=== PATIENT | female | born 2000 | race Hispanic/Latino ===

== ENCOUNTER 2021-12-12 10:05 | Emergency (ER) | payer SELFPAY ==
--- NOTE | ~2021-12-12 | CT_ITS ---
EXAMINATION: CT abdomen pelvis w con INDICATION: Right-sided abdominal pain TECHNIQUE: Computed tomographic images of the abdomen and pelvis were obtained after the administrati on of 100 cc of Omnipaque 350 intravenous contrast. The dose-length product (DLP) was 511.89 mGy-cm. Automated exposure control and iterative reconstruction technique were employed. COMPARISON: None available FINDINGS: Minimal dependent atelectasis is present in the lung bases. The heart size is normal. The l iver is diffusely low in attenuation when compared with the spleen, consistent with hepatic steatosis . The spleen, pancreas, gallbladder, and adrenal glands are normal. The kidneys are unremarkable. No pathologically enlarged abdominal or pelvic lymph nodes are identified. There is no free intraperiton eal gas or evidence of bowel obstruction. The appendix is normal. IMPRESSION: 1. Diffuse hepatic steatosis. Reviewed, dictated and finalized at location B.
[2021-12-12 10:11] VITALS: BP 133/78; PULSE 100; RESP 16; TEMP 36.3; O2SAT 99
--- NOTE | 2021-12-12 10:40 | PC.NURSE ---
unable to st. cath in triage
[2021-12-12 10:46] LABS: Alanine Aminotransferase 160 U/L (6-35); Albumin Level 4.9 g/dL (3.5-5.1); Alkaline Phosphatase 152 U/L (38-126); Anion Gap 11 mmol/L (8-16); Aspartate Amino Transferase 78 U/L (14-36); Bilirubin,Total 0.4 mg/dL (0.2-1.3); Blood Urea Nitrogen 13 mg/dL (7-17); Calcium 9.8 mg/dL (8.4-10.2); Carbon Dioxide 26 mmol/L (22-30); Chloride 102 mmol/L (98-107); Estimated Glomerular Filt Rate > 60; Glucose 100 mg/dL (65-110); Lipase 66 U/L (23-300); Potassium 3.9 mmol/L (3.4-5.0); Sodium 139 mmol/L (137-145)
[2021-12-12 10:48] LABS: Basophils Absolute Auto 0.1 K/mm3 (0.0-0.1); Eosinophils Absolute Auto 1.4 K/mm3 (0-0.3); Eosinophils Percent Auto 16.1 % (0-4.4); Hematocrit 41.6 % (37.0-47.0); Hemoglobin 13.7 g/dL (12.0-15.0); Immature Granulocyte Absolute 0.04 K/mm3 (0.00-0.031); Immature Granulocyte Percent A 0.5 % (0-0.5); Lymphocytes Absolute Auto 2.74 K/mm3 (0.9-3.2); Lymphocytes Percent Auto 31.6 % (18.3-44.2); Mean Corpuscular HGB Conc 32.9 g/dl (32-36); Mean Corpuscular Volume 88.1 fl (80-100); Mean Platelet Volume 9.8 fl (7.4-10.4); Monocytes Absolute Auto 0.7 K/mm3 (0.1-0.6); Monocytes Percent Auto 7.5 % (2.6-8.5); Neutrophils Absolute Auto 3.8 K/mm3 (1.3-6.7); Neutrophils Percent Auto 43.3 % (45.5-73.1); Platelet Count Result 287 k/mm3 (150-375); Red Blood Count 4.72 M/mm3 (4.2-5.4); Red Cell Distribution Width 12.8 % (11.5-14.5); White Blood Count 8.7 K/mm3 (4.5-10.0)
--- NOTE | 2021-12-12 13:23 | ED.ABDPAIN ---
HPI - Abdominal Pain General Chief Complaint: Abdominal Pain Stated Complaint: RUQ, R leg pain Time Seen by Provider: 12/12/21 13:07 Source: patient Mode of arrival: ambulatory Limitations: no limitations History of Present Illness HPI narrative: Patient is a 21-year-old female presenting for evaluation of RLQ and right sided abdominal pain. Patient reports pain is aching in nature in the right lower quadrant without radiation to the right flank. Patient also reports radiation of the pain to the right lower extremity. She reports mild pain with urination as well as frequency of urination. She has been ambulatory with a normal base, steady gait. She denies recent fall or injury. She denies centralized back pain, flank pain. She denies difficulty with urination, saddle anesthesia, focal weakness or numbness. Patient reports intermittent nausea without vomiting. Pt denies diarrhea or constipation. She denies fever, chills, chest pain, dyspnea or cough. She denies vaginal bleeding or discharge. Pt is sexually active, does not utilize OCP. LMP 8/24. Patient is requesting to know if she is . Related Data Allergies Allergy/AdvReac Type Severity Reaction Status Date / Time No Known Allergies Allergy Verified 12/12/21 10:27 Review of Systems Review of Systems: CONSTITUTIONAL: Denies fever, chills, or sweats. ENT: Denies rhinorrhea, congestion, sore throat, or otalgia. CARDIOVASCULAR: Denies chest pain, palpitations, or edema. RESPIRATORY: Denies cough or dyspnea. GASTROINTESTINAL: Patient reports right sided abdominal pain, nausea without vomiting, denies constipation or diarrhea GENITOURINARY: Reports dysuria without hematuria SKIN: Denies rash or itching. MUSCULOSKELETAL: Denies myalgias or arthralgias, reports right lower extremity pain NEUROLOGIC: Denies headache, numbness, or weakness. [facility] Social History Social History (Updated 12/12/21 @ 14:19 by Romelia Fry MD) Smoking status: Never smoker Alcohol intake: never Substance use: never Exam Narrative: GENERAL: Awake, alert, conversant HEAD: Normocephalic, atraumatic. EYES: PERRLA and EOMI. ENT: Nares clear, no rhinorrhea or epistaxis. Mucous membranes moist. NECK: Supple. CHEST: No respiratory distress, breathing even and non labored HEART: Regular rate, sinus rhythm ABDOMEN:Non distended, RLQ abd tenderness with right flank tenderness, no guarding, no rebound EXTREMITIES: Normal range of motion. No edema. Pt with pain with flexion and extension of right hip, knee and leg due; passive ROM intact. No edema or erythema. SKIN: Warm, dry, no rash. NEURO:No focal deficits. Alert and oriented x3 Course Vital Signs Vital signs: Vital Signs Temperature 36.3 C L 12/12/21 10:11 Pulse Rate 100 12/12/21 10:11 Respiratory Rate 16 12/12/21 10:11 Blood Pressure 133/78 12/12/21 10:11 Pulse Oximetry 99 12/12/21 10:11 Oxygen Delivery Room Air 12/12/21 10:11 Temperature 36.3 C L 12/12/21 10:11 Pulse Rate 100 12/12/21 10:11 Respiratory Rate 16 12/12/21 10:11 Blood Pressure 133/78 12/12/21 10:11 Pulse Oximetry 99 12/12/21 10:11 Oxygen Delivery Room Air 12/12/21 10:11 MDM - Abdominal Pain MDM Narrative Medical decision making narrative: Patient presented for evaluation of abdominal pain that radiates to her right lower leg. At the time of assessment, ABCs are intact and vital signs are stable. Patient does have right lower quadrant tenderness on exam without CVA flank tenderness. Patient has full range of motion of the right lower extremity without edema, erythema. No deformity. Patient is neurovascularly intact. There is no sign of injury. There is no rash. IV access obtained and labs are drawn. Patient was given IV fluids, antiemetic and pain medication. Patient's laboratory results are reassuring. No leukocytosis. No electrolyte abnormality. No acute kidney injury. Urinalysis is potentially consistent wi
[2021-12-12 14:51] LABS: Add Urine Microscopic? YES; Appearance Urine Clear (Clear); Bilirubin Urine Negative (Negative); Blood Urine Trace-Intact (Negative); Color Urine Yellow (Yellow); Glucose Urine UA Negative (Negative); Ketones Urine Negative (Negative); Leukocyte Esterase Ur 2+ LEU/UL (Negative); Nitrate Urine Negative (Negative); Protein Urine Negative (Negative); Specific Grav Ur 1.025 (1.001-1.035); Urobilinogen Urine 0.2 mg/dL (<2.0); pH Urine 5.5 (5.0-9.0)
[2021-12-12 14:58] LABS: Bacteria Urine Trace /hpf; Squamous Epithelial Cell Urine Moderate /hpf (Few)
[2021-12-12] MEDS: SODIUM CHLORIDE 0.9% IV 1,000 ML 999 ML IV CONT (15:09)
[2021-12-12] MEDS: ONDANSETRON INJ 4 MG/2 ML VIAL IV PUSH (15:09)
[2021-12-12] MEDS: MORPHINE SULFATE (*CRX) 4 MG/ML INJ IV PUSH (15:10)
[2021-12-12 17:00] VITALS: BP 116/63; PULSE 77; RESP 16; O2SAT 100
== END 2021-12-12 17:00 | disposition home or self-care (01) ==
PROVIDERS: Emergency Medicine; Emergency Provider Emergency Medicine
DX: N39.0 Urinary tract infection, site not specified (principal); R74.01 Elevation of levels of liver transaminase levels; K76.0 Fatty (change of) liver, not elsewhere classified
CPT/HCPCS: 36415; 74177; 80053; 81001; 81025; 83690; 85025; 96361; 96374; 96375; 99284; J2270; J2405; J7030; Q9967

== ENCOUNTER 2022-07-02 14:01 | Emergency (ER) | payer SELFPAY ==
--- NOTE | ~2022-07-02 | CT_ITS ---
EXAMINATION: CT abdomen pelvis w con DATE: 07/02/2022 23:12 INDICATION: Right lower quadrant abdominal pain and tenderness. TECHNIQUE: Computed tomography (CT) of the abdomen and pelvis was performed with 100 mL Omnipaque-350 intravenous contrast. Automated exposure control and iterative reconstruction technique were employe d. The dose-length product was 611.75 mGy-cm. COMPARISON: 12/12/21 FINDINGS: Lung bases are clear. Heart size is normal. No pericardial or pleural effusion. Likely diffuse hepati c steatosis although specificities decreased by the presence of intravenous contrast. Subtle 1.4 cm e nhancing lesion in the right hepatic lobe. Suggestion of a possible small gallstone near the neck of the otherwise normal-appearing gallbladder. No intra or axial hepatic biliary ductal dilation. The pa ncreas, spleen, bilateral adrenal glands and kidneys are normal. Bowels including the appendix are no rmal. Bladder, anteverted uterus and bilateral adnexa are unremarkable. No free intraperitoneal gas o r fluid. No pathologically enlarged abdominal or pelvic lymphadenopathy. Bones are unremarkable. IMPRESSION: 1. Normal appendix. No evident acute intra-abdominal/pelvic process. 2. Nonspecific 1.4 cm enhancing lesion in the right hepatic lobe which given patient age is most like ly benign but would recommend further evaluation with pre and postcontrast MRI. 3. Suggestion of a subtle gallstone at the neck of the otherwise normal-appearing gallbladder. No fin dings to suggest acute cholecystitis or biliary ductal dilation. More definitive assessment for latrice lithiasis could be obtained either the same time as evaluation of the liver lesion with MRI/MRCP or w ith ultrasound. Reviewed, dictated and finalized at location A. IMPRESSION: 1. Normal appendix. No evident acute intra-abdominal/pelvic process. 2. Nonspecific 1.4 cm enhancing lesion in the right hepatic lobe which given pa tient age is most likely benign but would recommend further evaluation with pre and postcontrast MRI. 3. Suggestion of a subtle gallstone at the neck of the otherwise normal-appeari ng gallbladder. No findings to suggest acute cholecystitis or biliary ductal di lation. More definitive assessment for cholelithiasis could be obtained either the same time as evaluation of the liver lesion with MRI/MRCP or with ultrasoun d.
[2022-07-02 14:10] VITALS: PULSE 85; RESP 16; TEMP 36.6; O2SAT 100
[2022-07-02 16:42] VITALS: BP 108/69; PULSE 88; O2SAT 98
[2022-07-02 16:49] LABS: Basophils Absolute Auto 0.1 K/mm3 (0.0-0.1); Basophils Percent Auto 0.9 % (0.2-1.2); Eosinophils Absolute Auto 1.1 K/mm3 (0-0.3); Eosinophils Percent Auto 11.2 % (0-4.4); Hematocrit 43.3 % (37.0-47.0); Hemoglobin 14.6 g/dL (12.0-15.0); Immature Granulocyte Absolute 0.05 K/mm3 (0.00-0.031); Immature Granulocyte Percent A 0.5 % (0-0.5); Lymphocytes Absolute Auto 3.34 K/mm3 (0.9-3.2); Mean Corpuscular HGB Conc 33.7 g/dl (32-36); Mean Corpuscular Hemoglobin 29.4 pg (26-34); Mean Corpuscular Volume 87.1 fl (80-100); Mean Platelet Volume 9.6 fl (7.4-10.4); Monocytes Absolute Auto 0.6 K/mm3 (0.1-0.6); Monocytes Percent Auto 6.3 % (2.6-8.5); Neutrophils Absolute Auto 4.9 K/mm3 (1.3-6.7); Neutrophils Percent Auto 48.1 % (45.5-73.1); Platelet Count Result 297 k/mm3 (150-375); Red Blood Count 4.97 M/mm3 (4.2-5.4); Red Cell Distribution Width 12.9 % (11.5-14.5); White Blood Count 10.1 K/mm3 (4.5-10.0)
[2022-07-02 16:59] LABS: Alanine Aminotransferase 54 U/L (6-35); Albumin Level 4.8 g/dL (3.5-5.1); Alkaline Phosphatase 136 U/L (38-126); Anion Gap 10 mmol/L (8-16); Aspartate Amino Transferase 43 U/L (14-36); Bilirubin,Total 0.7 mg/dL (0.2-1.3); Blood Urea Nitrogen 9 mg/dL (7-17); Calcium 9.5 mg/dL (8.4-10.2); Carbon Dioxide 28 mmol/L (22-30); Chloride 102 mmol/L (98-107); Estimated CRCL calculation 133 ml/min; Estimated Glomerular Filt Rate > 60; Glucose 99 mg/dL (65-110); Potassium 3.8 mmol/L (3.4-5.0); Sodium 140 mmol/L (137-145)
[2022-07-02 19:41] VITALS: BP 112/79; PULSE 84; RESP 18; O2SAT 99
[2022-07-02 20:06] LABS: Appearance Urine Clear (Clear); Bacteria Urine None Seen /hpf; Bilirubin Urine Negative (Negative); Blood Urine Negative (Negative); Color Urine Yellow (Yellow); Glucose Urine UA Negative (Negative); Ketones Urine Negative (Negative); Leukocyte Esterase Ur Trace LEU/UL (Negative); Nitrate Urine Negative (Negative); Non Pathogenic Casts 0-2; Protein Urine Negative (Negative); RBC Urine 0-2 /hpf (0-2); Specific Grav Ur 1.023 (1.001-1.035); Squamous Epithelial Cell Urine Occasional /hpf (Few); Urobilinogen Urine 0.2 mg/dL (<2.0); WBC Urine 0-5 /hpf
[2022-07-02 20:08] LABS: Add Urine Microscopic? YES
[2022-07-02 20:13] LABS: Partial Thromboplastin Time 27.5 SECONDS (22.3-36.8); Prothrombin Time 13.2 Seconds (11.1-14.7)
--- NOTE | 2022-07-02 21:54 | ED.FEMALEGU ---
HPI - Female Genitourinary General Chief complaint: Vaginal Bleeding <DAVID Schroeder Last Filed: 07/03/22 01:45> Stated complaint: abdominal pain/leg pain x 10 days <Kathryn Ibarra PA-C - Last Filed: 07/03/22 01:45> Time Seen by Provider: 07/02/22 21:30 <DAVID Schroeder Last Filed: 07/03/22 01:45> History of Present Illness HPI Narrative: 22-year-old female who speaks Senegalese here for evaluation of right lower quadrant abdominal pain for the past day. Patient states that she is on her menstrual cycle and has been bleeding for more days than typical but today she developed a crampy type pain in her right lower quadrant that is new for her. She has not attempted any medicine for pain. She is not on any oral contraceptives and denies chance of . She has had no fevers, chills, nausea or vomiting but does report dysuria. She denies passing blood clots, feeling weak or lightheaded. <DAVID Schroeder Last Filed: 07/03/22 01:45> Related Data Allergies/Adverse reactions: Allergies Allergy/AdvReac Type Severity Reaction Status Date / Time No Known Allergies Allergy Verified 07/02/22 14:03 <DAVID Schroeder Last Filed: 07/03/22 01:45> Review of Systems Review of Systems: Gen.: Denies fevers or chills Eyes: Denies eye pain or visual change ENT: Denies congestion Respiratory: Denies shortness of breath or cough CV: Denies chest pain or palpitations GI: Reports right lower quadrant abdominal pain. Denies hematuria Musculoskeletal: Denies back pain or muscle pain Neuro: Denies numbness, tingling, weakness or focal weakness Skin: Denies rash Except as documented, all other systems reviewed and negative <DAVID Schroeder Last Filed: 07/03/22 01:45> [facility] Social History Social History: Social History (Updated 12/12/21 @ 14:19 by Romelia Fry MD) Smoking status: Never smoker Alcohol intake: never Substance use: never <Kathryn Ibarra PA-C - Last Filed: 07/03/22 01:45> Exam Narrative: APPEARANCE: Well appearing, no pain in distress, well-nourished. Head: Normocephalic and atraumatic. EYES: PERRLA/EOMI, conjunctivae clear NOSE: No nasal drainage EARS: External ear normal in appearance THROAT: Oropharynx is clear. Mucous membranes are moist. NECK: Supple. No adenopathy, no masses. RESPIRATORY: Airway patent, respirations nonlabored. Clear to auscultation bilaterally, no rales, rhonchi, wheezing. CARDIOVASCULAR: Regular rate and rhythm without murmurs, rubs, or gallops. ABDOMINAL: Tender to palpation in the right lower quadrant with no rebound tenderness or guarding. Normoactive bowel sounds. Soft, nondistended. MUSCULOSKELETAL: Extremities are warm and well-perfused. Moves all extremities well. No edema. NEURO: Normal speech. No focal neurologic deficits. SKIN: Skin is warm and dry. No rashes. PSYCHIATRIC: Normal affect/mood. <Kathryn Ibarra PA-C - Last Filed: 07/03/22 01:45> Course [employer]/PA Physician Supervision This is a was performed by both a physician and an APC. I performed all aspects of the MDM as documented w/ the following additions: 22-year-old female presenting with right lower quadrant pain. CT abdomen pelvis was negative. Her pain resolved with symptomatic treatment. Patient was discharged with return precautions. All questions answered. Patient in agreement w/ disposition. <Boni Meredith MD - Last Filed: 07/03/22 05:32> Vital Signs Vital signs: Vital Signs Temperature 97.8 F 07/02/22 14:10 Pulse Rate 85 07/02/22 14:10 Respiratory Rate 16 07/02/22 14:10 Pulse Oximetry 100 07/02/22 14:10 Oxygen Delivery Room Air 07/02/22 14:10 Temperature 97.8 F 07/02/22 14:10 Pulse Rate 84 07/02/22 19:41 Respiratory Rate 18 07/02/22 19:41 Blood Pressure 131/86 07/03/22 01:31 Pulse Oximetry 99 07/03/22 01:31 Oxygen Delivery Room
[2022-07-02 23:57] VITALS: O2SAT 100
[2022-07-02 23:58] VITALS: BP 137/83; O2SAT 99
[2022-07-02] MEDS: KETOROLAC 15 MG/ML VIAL (*BKC) IV PUSH (23:58)
[2022-07-03] VITALS (13 sets, daily range): BP systolic 117–136; BP diastolic 71–86; O2SAT 97–100
== END 2022-07-03 01:43 | disposition home or self-care (01) ==
PROVIDERS: Emergency Medicine; General Practice; Emergency Provider Physician Assistant
DX: N39.0 Urinary tract infection, site not specified (principal)
CPT/HCPCS: 36415; 74177; 80053; 81001; 81025; 85025; 85610; 85730; 96374; 99284; J1885; Q9967

== ENCOUNTER 2022-09-12 16:43 | Emergency (ER) | payer SELFPAY ==
[2022-09-12] VITALS (15 sets, daily range): BP systolic 110–133; BP diastolic 69–82; PULSE 71–80; RESP 16–18; TEMP 36.9; O2SAT 94–99
--- NOTE | ~2022-09-12 | US_ITS ---
EXAMINATION: US pelvic complete DATE: 09/12/2022 21:37 INDICATION: pelvic pain and bleeding TECHNIQUE: Multiple transabdominal sonographic images of the pelvis were obtained. COMPARISON: None. FINDINGS: Uterus: 8.0 x 3.8 x 4.8 cm. Endometrial complex measures 14 mm. Right Ovary: 4.1 x 2.4 x 2.2 cm. Vascular flow is present. No adnexal mass Left Ovary: 1.9 x 1.9 x 3.0 cm. Vascular flow is present. There is no free fluid in the pelvis. IMPRESSION: Normal transabdominal pelvic sonogram findings. Reviewed, dictated and finalized at location K.
--- NOTE | 2022-09-12 19:14 | ECG_ITS ---
Measurements Intervals [place] Rate: 63 P: 22 FL: 153 QRS: 55 QRSD: 98 T: 34 QT: 396 QTc: 408 Interpretive Statements SINUS RHYTHM WITH SINUS ARRHYTHMIA POSSIBLE RIGHT VENTRICULAR CONDUCTION DELAY [RSR (QR) IN V1/V2] WITHIN NORMAL LIMITS NO PREVIOUS ECG AVAILABLE FOR COMPARISON Electronically Signed On 09-13-2022 13:18:41 CDT by Rafael Looney M.D.
[2022-09-12 19:31] LABS: Basophils Absolute Auto 0.1 K/mm3 (0.0-0.1); Basophils Percent Auto 0.7 % (0.2-1.2); Eosinophils Absolute Auto 0.9 K/mm3 (0-0.3); Eosinophils Percent Auto 7.8 % (0-4.4); Hematocrit 39.8 % (37.0-47.0); Hemoglobin 13.1 g/dL (12.0-15.0); Immature Granulocyte Absolute 0.16 K/mm3 (0.00-0.031); Immature Granulocyte Percent A 1.4 % (0-0.5); Lymphocytes Absolute Auto 3.17 K/mm3 (0.9-3.2); Mean Corpuscular HGB Conc 32.9 g/dl (32-36); Mean Corpuscular Volume 88.1 fl (80-100); Mean Platelet Volume 9.8 fl (7.4-10.4); Monocytes Absolute Auto 0.8 K/mm3 (0.1-0.6); Monocytes Percent Auto 6.8 % (2.6-8.5); Neutrophils Absolute Auto 6.3 K/mm3 (1.3-6.7); Neutrophils Percent Auto 55.3 % (45.5-73.1); Platelet Count Result 267 k/mm3 (150-375); Red Blood Count 4.52 M/mm3 (4.2-5.4); Red Cell Distribution Width 12.8 % (11.5-14.5); White Blood Count 11.3 K/mm3 (4.5-10.0)
[2022-09-12 19:38] LABS: Alanine Aminotransferase 52 U/L (6-35); Albumin Level 4.5 g/dL (3.5-5.1); Alkaline Phosphatase 137 U/L (38-126); Anion Gap 8 mmol/L (8-16); Aspartate Amino Transferase 39 U/L (14-36); Bilirubin,Total 0.4 mg/dL (0.2-1.3); Blood Urea Nitrogen 15 mg/dL (7-17); Calcium 8.8 mg/dL (8.4-10.2); Carbon Dioxide 25 mmol/L (22-30); Chloride 105 mmol/L (98-107); Estimated CRCL calculation 134 ml/min; Estimated Glomerular Filt Rate > 60; Glucose 89 mg/dL (65-110); Lipase 78 U/L (23-300); Potassium 3.5 mmol/L (3.4-5.0); Sodium 138 mmol/L (137-145)
[2022-09-12 19:47] LABS: Appearance Urine Clear (Clear); Bilirubin Urine Negative (Negative); Blood Urine Negative (Negative); Color Urine Yellow (Yellow); Glucose Urine UA Negative (Negative); Ketones Urine Negative (Negative); Leukocyte Esterase Ur Negative LEU/UL (Negative); Nitrate Urine Negative (Negative); Protein Urine Negative (Negative); Specific Grav Ur 1.026 (1.001-1.035); pH Urine 5.5 (5.0-9.0)
[2022-09-12 19:58] LABS: Add Urine Microscopic? NO
--- NOTE | 2022-09-12 21:35 | ED.ABDPAIN ---
HPI - Abdominal Pain General Chief Complaint: Abdominal Pain Stated Complaint: abdominal pain Time Seen by Provider: 09/12/22 18:38 History of Present Illness HPI narrative: 22-year-old G0 [place]ian-speaking female here for evaluation of lower pelvic pain x12 months. Patient is concerned that she cannot get because she has been trying to conceive over the past year and has not. Was seen in the ED for similar symptoms in June was told to follow-up with an [facility] but she did not do. Reports chronic pelvic pain and irregular cycles, she currently has been bleeding for the past month intermittently. Has not bled enough to saturate through a menstrual pad. No lightheadedness or dizziness. No nausea, vomiting, diarrhea or constipation. She has never been as far she knows. Related Data Allergies Allergy/AdvReac Type Severity Reaction Status Date / Time No Known Allergies Allergy Verified 07/02/22 14:03 Review of Systems Review of Systems: Gen.: Denies fevers or chills Eyes: Denies eye pain or visual change ENT: Denies congestion Respiratory: Denies shortness of breath or cough CV: Denies chest pain or palpitations GI: Denies abdominal pain nausea, emesis or diarrhea : Pelvic pain Musculoskeletal: Denies back pain or muscle pain Neuro: Denies numbness, tingling, weakness or focal weakness Skin: Denies rash Except as documented, all other systems reviewed and negative PMFSH Social History Social History (Updated 12/12/21 @ 14:19 by Romelia Fry MD) Smoking status: Never smoker Alcohol intake: never Substance use: never Exam Narrative: APPEARANCE: Well appearing, no pain in distress, well-nourished. Head: Normocephalic and atraumatic. EYES: PERRLA/EOMI, conjunctivae clear NOSE: No nasal drainage EARS: External ear normal in appearance THROAT: Oropharynx is clear. Mucous membranes are moist. NECK: Supple. No adenopathy, no masses. RESPIRATORY: Airway patent, respirations nonlabored. Clear to auscultation bilaterally, no rales, rhonchi, wheezing. CARDIOVASCULAR: Regular rate and rhythm without murmurs, rubs, or gallops. ABDOMINAL: Normoactive bowel sounds. Soft, nontender, nondistended. No rebound tenderness or guarding. MUSCULOSKELETAL: Extremities are warm and well-perfused. Moves all extremities well. No edema. NEURO: Normal speech. No focal neurologic deficits. SKIN: Skin is warm and dry. No rashes. PSYCHIATRIC: Normal affect/mood.. Course Vital Signs Vital signs: Vital Signs Temperature 98.5 F 09/12/22 16:45 Pulse Rate 80 09/12/22 16:45 Respiratory Rate 18 09/12/22 16:45 Blood Pressure 121/81 09/12/22 16:45 Pulse Oximetry 99 09/12/22 16:45 Oxygen Delivery Room Air 09/12/22 16:45 Temperature 98.5 F 09/12/22 16:45 Pulse Rate 71 09/12/22 22:46 Respiratory Rate 16 09/12/22 22:46 Blood Pressure 117/69 09/12/22 22:46 Pulse Oximetry 98 09/12/22 22:46 Oxygen Delivery Room Air 09/12/22 16:45 MDM - Abdominal Pain MDM Narrative Medical decision making narrative: 22-year-old female here for evaluation of pelvic pain, irregular vaginal bleeding and inability to conceive for the past 12 months. Patient is perplexed as to why she has not yet gotten and is asking me why this is the case. I explained to the patient that she will need to follow-up with [facility] for further work-up but she is adamant that she wants an ultrasound today. The pelvic ultrasound is negative. Her basic labs, UA and urine are unremarkable. Patient was informed that she needs to follow-up with [facility] for further work-up of her possible infertility. We discussed return precautions and she voiced understanding. Lab Data 09/12/22 19:14 09/12/22 19:14 Labs: Lab Results 09/12/22 09/12/22 Range/Units 19:14 19:32 WBC 11.3 H (4.5-10.0) K/mm3 RBC 4.52 (4.2-5.4) M/mm3 Hgb 13.1 (12.0-15.0) g/dL Hct 39
== END 2022-09-12 22:45 | disposition home or self-care (01) ==
PROVIDERS: Emergency Medicine; Emergency Provider Physician Assistant
DX: R10.2 Pelvic and perineal pain (principal); R94.31 Abnormal electrocardiogram [ECG] [EKG]
CPT/HCPCS: 36415; 76856; 80053; 81003; 81025; 83690; 85025; 93005; 99283; 99284

== ENCOUNTER 2023-11-02 07:02 | Emergency (ER) | payer SELFPAY ==
[2023-11-02 07:09] VITALS: BP 119/73; PULSE 83; RESP 20; TEMP 36.4; O2SAT 97
--- NOTE | 2023-11-02 07:25 | PC.NURSE ---
heart tones 138-143
--- NOTE | 2023-11-02 07:45 | ED.GENADULT ---
HPI - General Adult General Chief complaint: Upper Respiratory Infection Stated complaint: sore throat, 20 weeks wants US Time Seen by Provider: 11/02/23 07:04 History of Present Illness HPI narrative: [place] patient is a 23-year-old female who is 20 weeks that presents ER with sore throat. Ongoing for 1 week. Associated with fever yesterday. Has postnasal drip with productive cough. No known sick contacts. No vaginal bleeding or abdominal pain. Baby is moving. She gets her OB care at [facility] in [place]. Related Data Allergies Allergy/AdvReac Type Severity Reaction Status Date / Time No Known Allergies Allergy Verified 11/02/23 07:19 Review of Systems Constitutional: Constitutional: Denies chills, Denies fatigue and Reports fever(s) ENT: Reports nasal congestion and Reports sore throat Cardiovascular: Cardiovascular: Reports no additional cardiovascular complaints Respiratory: Respiratory: Reports no additional respiratory complaints Gastrointestinal: Gastrointestinal: Reports no additional gastrointestinal complaints Genitourinary: Genitourinary: Reports no additional female genitourinary complaints [facility] Past Medical History Medical History (Updated 11/02/23 @ 08:31 by Wenceslao Hunt MD) Healthy female adult Surgical History Surgical History (Updated 11/02/23 @ 07:47 by Wenceslao Hunt MD) No history of previous surgery Social History Social History (Updated 12/12/21 @ 14:19 by Romelia Fry MD) Smoking status: Never smoker Alcohol intake: never Substance use: never Course Course Emergency Course: Flu/RSV/COVID all negative. Patient with positive heart tones and movement. Discharge home. Discussed with patient that there is limited medication to use in . Vital Signs Vital signs: Vital Signs Temperature 97.6 F 11/02/23 07:09 Pulse Rate 83 11/02/23 07:09 Respiratory Rate 20 11/02/23 07:09 Blood Pressure 119/73 11/02/23 07:09 Pulse Oximetry 97 11/02/23 07:09 Oxygen Delivery Room Air 11/02/23 07:09 Temperature 97.6 F 11/02/23 07:09 Pulse Rate 83 11/02/23 07:09 Respiratory Rate 20 11/02/23 07:09 Blood Pressure 119/73 11/02/23 07:09 Pulse Oximetry 97 11/02/23 07:09 Oxygen Delivery Room Air 11/02/23 07:09 Medical Decision Making Vital Signs Vital Signs: Vital Signs Temperature 97.6 F 11/02/23 07:09 Pulse Rate 83 11/02/23 07:09 Respiratory Rate 20 11/02/23 07:09 Blood Pressure 119/73 11/02/23 07:09 Pulse Oximetry 97 11/02/23 07:09 Oxygen Delivery Room Air 11/02/23 07:09 Temperature 97.6 F 11/02/23 07:09 Pulse Rate 83 11/02/23 07:09 Respiratory Rate 20 11/02/23 07:09 Blood Pressure 119/73 11/02/23 07:09 Pulse Oximetry 97 11/02/23 07:09 Oxygen Delivery Room Air 11/02/23 07:09 Lab Data Labs: Lab Results 11/02/23 Range/Units 07:34 Influenza A (RT-PCR) Negative (Negative) Influenza B (RT-PCR) Negative (Negative) RSV (RT-PCR) Negative (Negative) SARS-CoV-2 RNA (RT-PCR) Negative (Negative) Discharge Plan Discharge Clinical Impression: URI (upper respiratory infection) Patient Disposition: Home, Self-Care Condition: Stable Instructions: Upper Respiratory Infection (ED) Additional Instructions: As discussed you have a viral illness. Unfortunately there are no specific medications we can give you to make the illness end faster. Antibiotics do not work for viral illnesses. However, you can take Acetaminophen to help with fevers and pain. Stay well hydrated and rested. Return to the emergency department if your fevers and chills continue to worsen after 5 days, if you develop worsening cough with thick sputum, or are unable to stay hydrated. Contact your primary care provider in the next few days for a re-evaluation and to make sure your symptoms are improving. Prescriptions: New C
[2023-11-02 07:46] VITALS: BP 108/68; PULSE 80; RESP 16; O2SAT 99
[2023-11-02 08:01] VITALS: BP 111/84; PULSE 82; RESP 18; TEMP 36.6; O2SAT 98
[2023-11-02 08:14] LABS: Influenza A QL RT-PCR Negative (Negative); Influenza B QL RT-PCR Negative (Negative); RSV RNA, RT-PCR Negative (Negative); SARS-CoV-2 RNA PCR Negative (Negative)
== END 2023-11-02 08:41 | disposition home or self-care (01) ==
PROVIDERS: Emergency Provider Emergency Medicine
DX: O99.512 Diseases of the respiratory system complicating pregnancy, second trimester (principal); J06.9 Acute upper respiratory infection, unspecified; Z20.822 Contact with and (suspected) exposure to COVID-19; Z3A.20 20 weeks gestation of pregnancy
CPT/HCPCS: 87637; 99283

== ENCOUNTER 2025-03-23 20:49 | Emergency (ER) | payer SELFPAY ==
--- NOTE | ~2025-03-23 | CT_ITS ---
EXAMINATION: CT abdomen pelvis w con DATE: 03/23/2025 22:43 INDICATION: Left flank pain. Left abdominal pain. TECHNIQUE: Computed tomography (CT) of the abdomen and pelvis was performed with 100 mL Omnipaque 350 intravenous contrast. Automated exposure control and iterative reconstruction technique were employed. The dose-length product was 428.60 mGy-cm. COMPARISON: CT abdomen and pelvis 07/02/22 FINDINGS: The visualized portions of the lung bases demonstrate mild atelectasis. No pleural effusion. The heart size is normal. No pericardial effusion. The liver and spleen are normal. There are changes of cholecystectomy. The pancreas, adrenal glands, and kidneys are normal. There are no dilated loops of bowel. There is desiccated stool in the distal small bowel suggesting slow transit. The appendix is normal. There are no pathologically enlarged lymph nodes. There is no ascites. There is an umbilical hernia containing fat. There is mild thoracic and lumbar spondylosis. IMPRESSION: 1. Umbilical hernia containing fat. Reviewed, dictated and finalized at location E. [employer]
[2025-03-23 20:52] VITALS: BP 123/70; PULSE 97; RESP 18; TEMP 36.5; O2SAT 99
--- NOTE | 2025-03-23 21:21 | ECG_ITS ---
Test Date: 2025-03-23 21:19:01 Measurements Intervals [place] Rate: 86 P: 34 SC: 177 QRS: 49 QRSD: 101 T: 35 QT: 372 QTc: 445 Interpretive Statements SINUS RHYTHM MINIMAL Q WAVES- INF/LAT LEADS BORDERLINE ECG No previous ECG available for comparison Electronically Signed On 03-24-2025 09:08:57 COATINGS INSPECTOR by Lj Mullins D.O.
[2025-03-23 21:30] LABS: Hematocrit 39.0 % (37.0-47.0); Hemoglobin 12.9 g/dL (12.0-15.0); Immature Granulocyte Percent A 0.5 % (0-0.5); Lymphocytes Absolute Auto 3.41 K/mm3 (0.9-3.2); Mean Corpuscular HGB Conc 33.1 g/dl (32-36); Mean Corpuscular Hemoglobin 29.5 pg (26-34); Mean Corpuscular Volume 89.2 fl (80-100); Nucleated Red Blood Cells Absolute Auto 0.000 K/mm3 (0.0-0.012); Nucleated Red Blood Cells Perc 0.0 % (0.0-0.2); Platelet Count Result 250 k/mm3 (150-375); Red Blood Count 4.37 M/mm3 (4.2-5.4); White Blood Count 9.6 K/mm3 (4.5-10.0)
[2025-03-23 21:40] LABS: Alanine Aminotransferase 30 U/L (6-35); Albumin Level 4.3 g/dL (3.5-5.1); Alkaline Phosphatase 204 U/L (38-126); Anion Gap 6 mmol/L (4-12); Aspartate Amino Transferase 31 U/L (14-36); Bilirubin,Total 0.3 mg/dL (0.2-1.3); Blood Urea Nitrogen 17 mg/dL (7-17); Calcium 9.0 mg/dL (8.4-10.2); Carbon Dioxide 23 mmol/L (22-30); Chloride 109 mmol/L (98-107); Estimated CRCL calculation 129 ml/min; Estimated Glomerular Filt Rate > 60; Glucose 121 mg/dL (65-110); Lipase 99 U/L (23-300); Potassium 3.7 mmol/L (3.4-5.0); Sodium 138 mmol/L (137-145); Total Protein 7.8 g/dL (6.3-8.2)
--- NOTE | 2025-03-23 21:42 | ED.ABDPAIN ---
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 Reports radiation into her flank. Reports dysuria. Denies fevers, vomiting, diarrhea. Patient had a syncopal episode while seated in triage Related Data Allergies Allergy/AdvReac Type Severity Reaction Status Date / Time No Known Allergies Allergy Verified 11/02/23 07:19 Review of Systems Review of Systems: All systems reviewed & are unremarkable except as noted in HPI and below PMFSH Past Medical History Medical History (Updated 03/24/25 @ 02:47 by Kathryn Ellison PA-C) Healthy female adult Surgical History Surgical History (Updated 11/02/23 @ 07:47 by Wenceslao Hunt MD) No history of previous surgery Social History Social History (Updated 12/12/21 @ 14:19 by Romelia Fry MD) Smoking status: Never smoker Alcohol intake: never Substance use: never Exam Narrative: GENERAL: Well-appearing, well-nourished, and in no acute distress. HEAD: Normocephalic, atraumatic. EYES: EOMI. ENT: Nares clear, no rhinorrhea or epistaxis. Mucous membranes moist. Oropharynx without tonsillar hypertrophy exudate or other lesions. NECK: Supple. No adenopathy or masses. CHEST: Clear to auscultation. No respiratory distress. No wheezes rales or rhonchi HEART: Regular rate and rhythm. No murmur heard. Normal peripheral pulses. ABDOMEN: Soft, nondistended, normal active bowel sounds. Tender to palpation in the left abdomen, without guarding EXTREMITIES: Normal range of motion. No edema. SKIN: Warm, dry, no rash. NEURO: No focal deficits. Alert and oriented x3. PSYCH: Normal mood and affect Course Vital Signs Vital signs: Vital Signs Temperature 97.7 F 03/23/25 20:52 Pulse Rate 97 03/23/25 20:52 Respiratory Rate 18 03/23/25 20:52 Blood Pressure 123/70 03/23/25 20:52 Pulse Oximetry 99 03/23/25 20:52 Oxygen Delivery Room Air 03/23/25 20:52 Temperature 97.7 F 03/23/25 20:52 Pulse Rate 89 03/23/25 23:37 Respiratory Rate 14 03/23/25 23:37 Blood Pressure 132/80 03/23/25 23:37 Pulse Oximetry 100 03/23/25 23:37 Oxygen Delivery Room Air 03/23/25 20:52 [facility] Narrative Medical decision making narrative: Patient presents emergency department for left-sided abdominal/flank pain. Patient is afebrile and nontoxic appearing. Her vitals are stable. Cbc without leukocytosis. Metabolic panel without concerning findings. Urine without evidence of infection. test is negative. Patient reportedly had a syncopal like episode while seated in triage. Her EKG does not have any concerning changes. Her baseline troponin is negative. CT abdomen and pelvis shows possible enteritis. Patient updated on her workup and agrees with plan of care. She is to follow up with primary provider. She was given warnings to return to the ER Differential Diagnosis Differential Diagnosis: UTI, pyelonephritis, kidney stone, diverticulitis Lab Data [facility] Lab Attestation statement: I personally reviewed the patient's lab results. 03/23/25 21:23 03/23/25 21:23 Labs: Lab Results 03/23/25 03/23/25 03/23/25 Range/Units 21:23 21:23 21:23 WBC 9.6 (4.5-10.0) K/mm3 RBC 4.37 (4.2-5.4) M/mm3 Hgb 12.9 (12.0-15.0) g/dL Hct 39.0 (37.0-47.0) % MCV 89.2 (80-100) fl MCH 29.5 (26-34) pg MCHC 33.1 (32-36) g/dl RDW 12.6 (11.5-14.5) % Plt Count 250 (150-375) k/mm3 MPV 9.9 (7.4-10.4) fl Immature Gran % (Auto) 0.5 (0-0.5) % Neut % (Auto) 46.1 (45.5-73.1) % Lymph % (Auto) 35.4 (18.3-44.2) % Maury % (Auto) 7.5 (2.6-8.5) % Eos % (Auto) 9.6 H (0-4.4) % Baso % (Auto) 0.9 (0.2-1.2) % Lymph # (Auto) 3.41 H (0.9-3.2) K/mm3 Maury # (Auto) 0.7 H (0.1-0.6) K/mm3 Eos # (Auto) 0.9 H (0-0.3) K/mm3 Baso # (Auto) 0.1 (0.0-0.1) K/mm3 Abs Immat Gran (auto) 0.05 H (0.00-0.031) K/mm3 Absolute Neuts (auto) 4.4 (1.3-6.7) K/mm3 Absolute Nucleated RBC 0.000 (0.0-0.012) K/mm3 Nucleated RBC % 0.0 (0.0-0.2) % Sodium Cancelled 138 Potassium Cancelled 3.7 Chloride Cancelled Carbon Dioxide Anion Gap BUN Creatinine Estim Creat Clear Calc Estimated GFR Glucose Calcium Total Bilirubin AST ALT Alkaline Phosphatase Troponin I (0.000-0.034) ng/mL Total Protein Albumin Lipase Urine Color (Yellow) Urine Appearance (Clear) Urine pH (5.0-9.0) Ur Specific [place] (1.001-1.035) Urine Protein (Negative) mg/dL Urine Glucose (UA) (Negative) mg/dL Urine Ketones (Negative) mg/dL Ur Blood (Man) (Negative) Urine Nitrate (Negative) Urine Bilirubin (Negative) Urine Urobilinogen (<2.0) mg/dL Leukocyte Esterase Rfl (Negative) CHAVO/UL POC Urine HCG, Qual (Negative) 03/23/25 03/23/25 03/23/25 Range/Units 21:23 21:23 21:23 WBC (4.5-10.0) K/mm3 RBC (4.2-5.4) M/mm3 Hgb (12.0-15.0) g/dL Hct (37.0-47.0) % MCV (80-100) fl MCH (26-34) pg MCHC (32-36) g/dl RDW (11.5-14.5) % Plt Count (150-375) k/mm3 MPV (7.4-10.4) fl Immature Gran % (Auto) (0-0.5) % Neut % (Auto) (45.5-73.1) % Lymph % (Auto) (18.3-44.2) % Maury % (Auto) (2.6-8.5) % Eos % (Auto) (0-4.4) % Baso % (Auto) (0.2-1.2) % Lymph # (Auto) (0.9-3.2) K/mm3 Maury # (Auto) (0.1-0.6) K/mm3 Eos # (Auto) (0-0.3) K/mm3 Baso # (Auto) (0.0-0.1) K/mm3 Abs Immat Gran (auto) (0.00-0.031) K/mm3 Absolute Neuts (auto) (1.3-6.7) K/mm3 Absolute Nucleated RBC (0.0-0.012) K/mm3 Nucleated RBC % (0.0-0.2) % Sodium Potassium Chloride 109 H Carbon Dioxide Cancelled 23 Anion Gap Cancelled 6 BUN Cancelled Creatinine Estim Creat Clear Calc Estimated GFR Glucose Calcium Total Bilirubin AST ALT Alkaline Phosphatase Troponin I (0.000-0.034) ng/mL Total Protein Albumin Lipase Urine Color (Yellow) Urine Appearance (Clear) Urine pH (5.0-9.0) Ur Specific [place] (1.001-1.035) Urine Protein (Negative) mg/dL Urine Glucose (UA) (Negative) mg/dL Urine Ketones (Negative) mg/dL Ur Blood (Man) (Negative) Urine Nitrate (Negative) Urine Bilirubin (Negative) Urine Urobilinogen (<2.0) mg/dL Leukocyte Esterase Rfl (Negative) CHAVO/UL POC Urine HCG, Qual (Negative) 03/23/25 03/23/25 03/23/25 Range/Units 21:23 21:23 21:23 WBC (4.5-10.0) K/mm3 RBC (4.2-5.4) M/mm3 Hgb (12.0-15.0) g/dL Hct (37.0-47.0) % MCV (80-100) fl MCH (26-34) pg MCHC (32-36) g/dl RDW (11.5-14.5) % Plt Count (150-375) k/mm3 MPV (7.4-10.4) fl Immature Gran % (Auto) (0-0.5) % Neut % (Auto) (45.5-73.1) % Lymph % (Auto) (18.3-44.2) % Maury % (Auto) (2.6-8.5) % Eos % (Auto) (0-4.4) % Baso % (Auto) (0.2-1.2) % Lymph # (Auto) (0.9-3.2) K/mm3 Maury # (Auto) (0.1-0.6) K/mm3 Eos # (Auto) (0-0.3) K/mm3 Baso # (Auto) (0.0-0.1) K/mm3 Abs Immat Gran (auto) (0.00-0.031) K/mm3 Absolute Neuts (auto) (1.3-6.7) K/mm3 Absolute Nucleated RBC (0.0-0.012) K/mm3 Nucleated RBC % (0.0-0.2) % Sodium Potassium Chloride Carbon Dioxide Anion Gap BUN 17 Creatinine Cancelled 0.46 L Estim Creat Clear Calc Cancelled 129 Estimated GFR Cancelled Glucose Calcium Total Bilirubin AST ALT Alkaline Phosphatase Troponin I (0.000-0.034) ng/mL Total Protein Albumin Lipase Urine Color (Yellow) Urine Appearance (Clear) Urine pH (5.0-9.0) Ur Specific [place] (1.001-1.035) Urine Protein (Negative) mg/dL Urine Glucose (UA) (Negative) mg/dL Urine Ketones (Negative) mg/dL Ur Blood (Man) (Negative) Urine Nitrate (Negative) Urine Bilirubin (Negative) Urine Urobilinogen (<2.0) mg/dL Leukocyte Esterase Rfl (Negative) CHAVO/UL POC Urine HCG, Qual (Negative) 03/23/25 03/23/25 03/23/25 Range/Units 21:23 21:23 21:23 WBC (4.5-10.0) K/mm3 RBC (4.2-5.4) M/mm3 Hgb (12.0-15.0) g/dL Hct (37.0-47.0) % MCV (80-100) fl MCH (26-34) pg MCHC (32-36) g/dl RDW (11.5-14.5) % Plt Count (150-375) k/mm3 MPV (7.4-10.4) fl Immature Gran % (Auto) (0-0.5) % Neut % (Auto) (45.5-73.1) % Lymph % (Auto) (18.3-44.2) % Maury % (Auto) (2.6-8.5) % Eos % (Auto) (0-4.4) % Baso % (Auto) (0.2-1.2) % Lymph # (Auto) (0.9-3.2) K/mm3 Maury # (Auto) (0.1-0.6) K/mm3 Eos # (Auto) (0-0.3) K/mm3 Baso # (Auto) (0.0-0.1) K/mm3 Abs Immat Gran (auto) (0.00-0.031) K/mm3 Absolute Neuts (auto) (1.3-6.7) K/mm3 Absolute Nucleated RBC (0.0-0.012) K/mm3 Nucleated RBC % (0.0-0.2) % Sodium Potassium Chloride Carbon Dioxide Anion Gap BUN Creatinine Estim Creat Clear Calc Estimated GFR > 60 Glucose Cancelled 121 H Calcium Cancelled 9.0 Total Bilirubin Cancelled AST ALT Alkaline Phosphatase Troponin I (0.000-0.034) ng/mL Total Protein Albumin Lipase Urine Color (Yellow) Urine Appearance (Clear) Urine pH (5.0-9.0) Ur Specific [place] (1.001-1.035) Urine Protein (Negative) mg/dL Urine Glucose (UA) (Negative) mg/dL Urine Ketones (Negative) mg/dL Ur Blood (Man) (Negative) Urine Nitrate (Negative) Urine Bilirubin (Negative) Urine Urobilinogen (<2.0) mg/dL Leukocyte Esterase Rfl (Negative) CHAVO/UL POC Urine HCG, Qual (Negative) 03/23/25 03/23/25 03/23/25 Range/Units 21:23 21:23 21:23 WBC (4.5-10.0) K/mm3 RBC (4.2-5.4) M/mm3 Hgb (12.0-15.0) g/dL Hct (37.0-47.0) % MCV (80-100) fl MCH (26-34) pg MCHC (32-36) g/dl RDW (11.5-14.5) % Plt Count (150-375) k/mm3 MPV (7.4-10.4) fl Immature Gran % (Auto) (0-0.5) % Neut % (Auto) (45.5-73.1) % Lymph % (Auto) (18.3-44.2) % Maury % (Auto) (2.6-8.5) % Eos % (Auto) (0-4.4) % Baso % (Auto) (0.2-1.2) % Lymph # (Auto) (0.9-3.2) K/mm3 Maury # (Auto) (0.1-0.6) K/mm3 Eos # (Auto) (0-0.3) K/mm3 Baso # (Auto) (0.0-0.1) K/mm3 Abs Immat Gran (auto) (0.00-0.031) K/mm3 Absolute Neuts (auto) (1.3-6.7) K/mm3 Absolute Nucleated RBC (0.0-0.012) K/mm3 Nucleated RBC % (0.0-0.2) % Sodium Potassium Chloride Carbon Dioxide Anion Gap BUN Creatinine Estim Creat Clear Calc Estimated GFR Glucose Calcium Total Bilirubin 0.3 AST Cancelled 31 ALT Cancelled 30 Alkaline Phosphatase Cancelled Troponin I (0.000-0.034) ng/mL Total Protein Albumin Lipase Urine Color (Yellow) Urine Appearance (Clear) Urine pH (5.0-9.0) Ur Specific [place] (1.001-1.035) Urine Protein (Negative) mg/dL Urine Glucose (UA) (Negative) mg/dL Urine Ketones (Negative) mg/dL Ur Blood (Man) (Negative) Urine Nitrate (Negative) Urine Bilirubin (Negative) Urine Urobilinogen (<2.0) mg/dL Leukocyte Esterase Rfl (Negative) CHAVO/UL POC Urine HCG, Qual (Negative) 03/23/25 03/23/25 03/23/25 Range/Units 21:23 21:23 21:23 WBC (4.5-10.0) K/mm3 RBC (4.2-5.4) M/mm3 Hgb (12.0-15.0) g/dL Hct (37.0-47.0) % MCV (80-100) fl MCH (26-34) pg MCHC (32-36) g/dl RDW (11.5-14.5) % Plt Count (150-375) k/mm3 MPV (7.4-10.4) fl Immature Gran % (Auto) (0-0.5) % Neut % (Auto) (45.5-73.1) % Lymph % (Auto) (18.3-44.2) % Maury % (Auto) (2.6-8.5) % Eos % (Auto) (0-4.4) % Baso % (Auto) (0.2-1.2) % Lymph # (Auto) (0.9-3.2) K/mm3 Maury # (Auto) (0.1-0.6) K/mm3 Eos # (Auto) (0-0.3) K/mm3 Baso # (Auto) (0.0-0.1) K/mm3 Abs Immat Gran (auto) (0.00-0.031) K/mm3 Absolute Neuts (auto) (1.3-6.7) K/mm3 Absolute Nucleated RBC (0.0-0.012) K/mm3 Nucleated RBC % (0.0-0.2) % Sodium Potassium Chloride Carbon Dioxide Anion Gap BUN Creatinine Estim Creat Clear Calc Estimated GFR Glucose Calcium Total Bilirubin AST ALT Alkaline Phosphatase 204 H Troponin I < 0.012 (0.000-0.034) ng/mL Total Protein Cancelled 7.8 Albumin Cancelled 4.3 Lipase Cancelled Urine Color (Yellow) Urine Appearance (Clear) Urine pH (5.0-9.0) Ur Specific [place] (1.001-1.035) Urine Protein (Negative) mg/dL Urine Glucose (UA) (Negative) mg/dL Urine Ketones (Negative) mg/dL Ur Blood (Man) (Negative) Urine Nitrate (Negative) Urine Bilirubin (Negative) Urine Urobilinogen (<2.0) mg/dL Leukocyte Esterase Rfl (Negative) CHAVO/UL POC Urine HCG, Qual (Negative) 03/23/25 03/23/25 03/23/25 Range/Units 21:23 22:13 22:16 WBC (4.5-10.0) K/mm3 RBC (4.2-5.4) M/mm3 Hgb (12.0-15.0) g/dL Hct (37.0-47.0) % MCV (80-100) fl MCH (26-34) pg MCHC (32-36) g/dl RDW (11.5-14.5) % Plt Count (150-375) k/mm3 MPV (7.4-10.4) fl Immature Gran % (Auto) (0-0.5) % Neut % (Auto) (45.5-73.1) % Lymph % (Auto) (18.3-44.2) % Maury % (Auto) (2.6-8.5) % Eos % (Auto) (0-4.4) % Baso % (Auto) (0.2-1.2) % Lymph # (Auto) (0.9-3.2) K/mm3 Maury # (Auto) (0.1-0.6) K/mm3 Eos # (Auto) (0-0.3) K/mm3 Baso # (Auto) (0.0-0.1) K/mm3 Abs Immat Gran (auto) (0.00-0.031) K/mm3 Absolute Neuts (auto) (1.3-6.7) K/mm3 Absolute Nucleated RBC (0.0-0.012) K/mm3 Nucleated RBC % (0.0-0.2) % Sodium Potassium Chloride Carbon Dioxide Anion Gap BUN Creatinine Estim Creat Clear Calc Estimated GFR Glucose Calcium Total Bilirubin AST ALT Alkaline Phosphatase Troponin I (0.000-0.034) ng/mL Total Protein Albumin Lipase 99 Urine Color Yellow (Yellow) Urine Appearance Clear (Clear) Urine pH 7.0 (5.0-9.0) Ur Specific [place] 1.026 (1.001-1.035) Urine Protein Negative (Negative) mg/dL Urine Glucose (UA) Negative (Negative) mg/dL Urine Ketones Negative (Negative) mg/dL Ur Blood (Man) Negative (Negative) Urine Nitrate Negative (Negative) Urine Bilirubin Negative (Negative) Urine Urobilinogen 0.2 (<2.0) mg/dL Leukocyte Esterase Rfl Negative (Negative) CHAVO/UL POC Urine HCG, Qual Negative (Negative) Imaging Data Radiologist's impression: CT abdomen and pelvis: Mildly distended fluid-filled loops of small bowel are noted in the addition of fecalization of the terminal ileum. Question enteritis or slow transit. No obstruction. Solid organs are normal. No hydronephrosis or hydroureter. Left ovary and adnexa are normal. No significant inflammatory stranding. The base the appendix is mildly prominent, however the remainder of the appendix is normal there are no secondary signs of acute appendicitis. ECG Data EKG #1: ECG completion date: 03/23/25 normal rate, sinus rhythm, no ST changes and normal QT Critical Care Time Critical Care Time Critical Care Time: No Discharge Plan Discharge Clinical Impression: Enteritis Patient Disposition: Home Condition: Stable Instructions: Enteritis (ED) Additional Instructions: Return to the ER if you experience fever, abdominal pain with nausea and vomiting, you are unable to keep down liquids or solids, or any other symptoms that are concerning to you Small, frequent meals. Dumont diet. Remain well hydrated. Ondansetron as needed for nausea Follow up with primary care doctor Patient Language: Algerian Prescriptions: New ondansetron 4 mg tablet,disintegrating 4 mg PO Q8H PRN (Reason: nausea and vomiting) Qty: 10 0RF No Action cephalexin 500 mg capsule 500 mg PO Q8H 10 Days Qty: 30 0RF ibuprofen 400 mg tablet 400 mg PO TID PRN (Reason: fever or pain) 10 Days Qty: 30 0RF ondansetron 4 mg tablet,disintegrating 4 mg PO Q8H PRN (Reason: nausea and vomiting) 7 Days Qty: 20 0RF acetaminophen 500 mg capsule 500 mg PO Q6H PRN (Reason: fever or pain) Qty: 30 0RF dicyclomine 10 mg capsule 10 mg PO TID 5 Days Qty: 15 0RF nitrofurantoin monohyd/m-cryst [Macrobid] 100 mg capsule 100 mg PO Q12H 5 Days Qty: 10 0RF Rx Instructions: must administer with a meal/food Cepacol Sore Throat (austen-men) 15-3.6 mg lozenge 1 sheila mucous membrane Q2H PRN (Reason: sore throat) Qty: 16 0RF Follow-up/Referrals: PHYSICIAN NOT ON STAFF,NONSTAFF [Primary Care Provider]
[2025-03-23 21:51] LABS: Troponin I < 0.012 ng/mL (0.000-0.034)
[2025-03-23 22:18] LABS: BEDSIDEPREGUCG Negative (Negative)
[2025-03-23 22:23] LABS: Add Urine Microscopic? NO; Appearance Urine Clear (Clear); Glucose Urine UA Negative (Negative); Leukocyte Esterase Ur Negative LEU/UL (Negative); Nitrate Urine Negative (Negative); Specific Grav Ur 1.026 (1.001-1.035)
[2025-03-23] MEDS: LACTATED RINGERS 1,000 ML 999 ML IV CONT (22:27)
[2025-03-23 23:37] VITALS: BP 132/80; PULSE 89; RESP 14; O2SAT 100
[2025-03-24] MEDS: KETOROLAC 15 MG/ML VIAL (*BKC) IV PUSH (03:01)
[2025-03-24 03:16] VITALS: BP 129/76; PULSE 83; RESP 16; TEMP 36.8; O2SAT 99
[2025-03-24 03:17] VITALS: BP 129/76; PULSE 83; RESP 16; TEMP 36.8; O2SAT 99
== END 2025-03-24 03:19 | disposition home or self-care (01) ==
PROVIDERS: Emergency Provider Physician Assistant
DX: K52.9 Noninfective gastroenteritis and colitis, unspecified (principal)
CPT/HCPCS: 36415; 74177; 80053; 81003; 81025; 83690; 84484; 85025; 93005; 96361; 96374; 99284; J1885; J7120; Q9967